=== PATIENT | male | born 1955 | race Caucasian/White ===

== ENCOUNTER 2024-07-07 22:18 | Inpatient (IN) | payer MEDICARE ==
[~2024-07-07] VITALS: Ht 175.3 cm; Wt 79.4 kg
[2024-07-07 22:18] VITALS: TEMP 98.3
[2024-07-07] MEDS ORDERED: SODIUM CHLORIDE FLUSH 10 ML SYR IV PRN (22:30)
[2024-07-07 22:59] LABS: BASOPHILS % 0.6 % (0.0-1.0); EOSINOPHILS # (AUTO) 0.1 (0.0-0.4); EOSINOPHILS % 1.8 % (0.0-6.0); HEMATOCRIT 44.5 % (38.2-49.6); HEMOGLOBIN 14.9 g/dL (14.0-18.0); LYMPHOCYTES # (AUTO) 2.4 (1.0-3.2); LYMPHOCYTES % 36.6 % (18.0-39.1); MEAN CORPUSCULAR HGB CONC 33.5 g/dL (31-35); MEAN CORPUSCULAR VOLUME 95.7 fL (81-99); MONOCYTES # (AUTO) 0.8 (0.2-0.8); MONOCYTES % 11.7 % (4.4-11.3); NEUTROPHILS # (AUTO) 3.2 (2.1-6.9); NEUTROPHILS % 49.1 % (38.7-80.0); PLATELET COUNT 228 x10e3/uL (140-360); RED BLOOD COUNT 4.65 x10e6/uL (4.3-5.7); RED CELL DISTRIBUTION WIDTH 12.7 % (11.7-14.4)
[2024-07-07 23:26] LABS: ALBUMIN/GLOBULIN RATIO 1.4 (0.8-2.0); BILIRUBIN,TOTAL 0.4 mg/dL (0.2-1.2); CREATININE, SERUM 1.03 mg/dL (0.72-1.25); TOTAL PROTEIN 6.9 g/dL (6.5-8.1)
[2024-07-07 23:32] LABS: TROPONIN I 0.002 ng/mL (0-0.300)
[2024-07-07 23:52] LABS: AMPHETAMINES SCREEN,URINE NEGATIVE (NEGATIVE); BENZODIAZEPINES SCREEN,URINE NEGATIVE (NEGATIVE); CANNABINOIDS SCREEN,URINE NEGATIVE (NEGATIVE); CLARITY,URINE CLEAR (CLEAR); COCAINE SCREEN,URINE NEGATIVE (NEGATIVE); COLOR,URINE COLORLESS (YELLOW); GLUCOSE, URINE 1+ (NEGATIVE); KETONES,URINE NEGATIVE (NEGATIVE); LEUKOCYTE ESTERASE ,URINE NEGATIVE (NEGATIVE); METHADONE SCREEN, URINE NEGATIVE (NEGATIVE); NITRITE,URINE NEGATIVE (NEGATIVE); OPIATES SCREEN,URINE NEGATIVE (NEGATIVE); PH,URINE 5.5 (5 - 7); PHENCYCLIDINE SCREEN,URINE NEGATIVE (NEGATIVE); PROTEIN,URINE DIPSTICK NEGATIVE (NEGATIVE)
[2024-07-07 23:53] LABS: BILIRUBIN,URINE NEGATIVE (NEGATIVE); URINE UROBILINOGEN 0.2 mg/dL (0.2 - 1)
[2024-07-08] VITALS (42 sets, daily range): BP systolic 88–154; BP diastolic 52–90; PULSE 36–65; RESP 11–27; TEMP 98.9–99.1; O2SAT 91–100
[2024-07-08] MEDS: DEXMEDETOMIDINE 400MCG/NS100ML 100 ML IV PRN (00:08)
[2024-07-08] MEDS: ASPIRIN 81 MG CHEW TAB PO ONE (00:09)
[2024-07-08] MEDS: ONDANSETRON HCL INJ 2MG/ML 2ML 2 MG/ML VIAL IV STA (00:10)
[2024-07-08] MEDS ORDERED: MIDAZOLAM HCL 50 MG in SODIUM CHLORIDE 0.9% 90 ML IV PRN (00:15)
[2024-07-08 00:21] LABS: BACTERIA,URINE FEW /HPF; EPITHELIAL CELLS,URINE FEW /LPF; RBC,URINE 0-5 /HPF (0-5); WBC,URINE (MAN) 0-5 /HPF (0-5)
[2024-07-08 00:45] LABS: ABG HCO3 22 mmol/L (22-26); ABG PCO2 45 mmHg (35-45); ABG PO2 92 mmHg (80-105); ABG TCO2 23
[2024-07-08] MEDS: SODIUM CHLORIDE 0.9% 1000ML 1,000 ML IV ONE (01:35)
[2024-07-08] MEDS: DEXMEDETOMIDINE 400MCG/NS100ML 100 ML IV ONE (01:57)
[2024-07-08 02:08] LABS: ABG HCO3 21 mmol/L (22-26); ABG PCO2 45 mmHg (35-45); ABG PH 7.27 (7.35-7.45); ABG PO2 94 mmHg (80-105); ABG TCO2 22
[2024-07-08] MEDS: SODIUM CHLORIDE 0.9% 1000ML 1,000 ML IV SCH ×2 (02:14→04:45)
[2024-07-08] MEDS ORDERED: IOPAMIDOL 370 MG/ML 100 ML INFUS..BTL INJ ONE (02:20)
[2024-07-08] MEDS: FENTANYL CITRATE INJ 2,000 MCG in SODIUM CHLORIDE 0.9% 250ML 210 ML IV PRN (03:07)
[2024-07-08] MEDS ORDERED: ATROPINE SULFATE 0.1 MG/ML 10ML SYR ONE (03:45)
[2024-07-08] MEDS: ATROPINE SULFATE 1 MG/ML VIAL IV ONE (03:56)
[2024-07-08] MEDS ORDERED: EPINEPHRINE HCL 1:1000 1ML 4 MG in DEXTROSE 5% 250ML 250 ML IV SCH (04:00)
[2024-07-08] MEDS ORDERED: ONDANSETRON HCL INJ 2MG/ML 2ML 2 MG/ML VIAL IV PRN (04:45)
[2024-07-08] MEDS: MULTIVITAMINS- 12 INJECTION 10 ML, FOLIC ACID MDV 1 MG, THIAMINE HCL INJ 100 MG in SODI... IV ONE (05:13)
[2024-07-08] MEDS ORDERED: DEXTROSE 50% SYRINGE 50 ML IV PRN ×2 (08:30→14:00)
[2024-07-08] MEDS: LACTATED RINGER'S 1,000 ML INJ ONE (09:34)
[2024-07-08 10:06] LABS: ABG HCO3 22 mmol/L (22-26); ABG PCO2 42 mmHg (35-45); ABG PH 7.32 (7.35-7.45); ABG PO2 111 mmHg (80-105); ABG TCO2 23
[2024-07-08] MEDS: INSULIN REGULAR, HUMAN 100 UNIT/1 ML SQ SCH (11:30)
[2024-07-08] MEDS: TRAMADOL HCL 50 MG TAB PO PRN (11:51)
[2024-07-08] MEDS ORDERED: LIPITOR20 MG PO (12:18)
[2024-07-08] MEDS ORDERED: FUROSEMIDE40 MG PO (12:20)
[2024-07-08] MEDS ORDERED: COREG6.25 MG PO (12:21)
[2024-07-08] MEDS ORDERED: JARDIANCE25 MG (12:22)
[2024-07-08] MEDS ORDERED: DOCUSATE SODIUM 100 MG CAP PO PRN (14:00)
[2024-07-08] MEDS ORDERED: SIMETHICONE 80 MG CHEW PO PRN (14:00)
[2024-07-08] MEDS ORDERED: ALBUTEROL/IPRATROPIUM 3 ML NEB NEB PRN (14:00)
[2024-07-08] MEDS ORDERED: ACETAMINOPHEN 325 MG TAB PO PRN (14:00)
[2024-07-08] MEDS ORDERED: LIDOCAINE 4% PATCH TP PRN (14:00)
[2024-07-08] MEDS ORDERED: POTASSIUM CHLORIDE 20 MEQ TAB CR PO PRN (14:00)
[2024-07-08] MEDS ORDERED: HYDRALAZINE HCL 20 MG/ML VIAL IV PRN (14:00)
[2024-07-08] MEDS ORDERED: BENZONATATE 100 MG CAP PO PRN (14:00)
[2024-07-08] MEDS ORDERED: DIPHENHYDRAMINE HCL 25 MG CAP PO PRN (14:00)
[2024-07-08] MEDS: ENOXAPARIN SOD INJ 40 MG/0.4 ML SYR SC SCH (16:32)
[2024-07-08] MEDS: MUPIROCIN 2% OINT 22 GM TUBE TOP SCH (16:32)
[2024-07-08] MEDS: KETOROLAC TROMETHAMINE 30 MG/ML VIAL IV SCH (16:32)
[2024-07-08] MEDS ORDERED: MELATONIN 5 MG TABLET PO PRN (21:00)
[2024-07-09] VITALS (11 sets, daily range): BP systolic 127–169; BP diastolic 51–81; PULSE 42–52; RESP 13–20; TEMP 98.5–98.6; O2SAT 94–100
[2024-07-09 06:20] LABS: BASOPHILS # (AUTO) 0.1 (0.0-0.1); BASOPHILS % 0.8 % (0.0-1.0); EOSINOPHILS # (AUTO) 0.1 (0.0-0.4); EOSINOPHILS % 1.5 % (0.0-6.0); HEMATOCRIT 40.1 % (38.2-49.6); HEMOGLOBIN 13.1 g/dL (14.0-18.0); LYMPHOCYTES # (AUTO) 1.7 (1.0-3.2); LYMPHOCYTES % 28.3 % (18.0-39.1); MEAN CORPUSCULAR HEMOGLOBIN 31.9 pg (28-32); MEAN CORPUSCULAR HGB CONC 32.7 g/dL (31-35); MEAN CORPUSCULAR VOLUME 97.6 fL (81-99); MONOCYTES # (AUTO) 0.7 (0.2-0.8); MONOCYTES % 11.7 % (4.4-11.3); NEUTROPHILS # (AUTO) 3.5 (2.1-6.9); NEUTROPHILS % 57.4 % (38.7-80.0); PLATELET COUNT 166 x10e3/uL (140-360); RED BLOOD COUNT 4.11 x10e6/uL (4.3-5.7); RED CELL DISTRIBUTION WIDTH 12.5 % (11.7-14.4); WHITE BLOOD COUNT 6.07 x10e3/uL (4.8-10.8)
[2024-07-09 06:49] LABS: ALBUMIN 3.1 g/dL (3.5-5.0); ALBUMIN/GLOBULIN RATIO 1.4 (0.8-2.0); ANION GAP 8.6 mmol/L (8-16); BILIRUBIN,TOTAL 1.4 mg/dL (0.2-1.2); CALCIUM 8.1 mg/dL (8.4-10.2); CREATININE, SERUM 0.8 mg/dL (0.72-1.25); POTASSIUM 3.6 mmol/L (3.5-5.1); TOTAL PROTEIN 5.3 g/dL (6.5-8.1)
[2024-07-09] MEDS: PANTOPRAZOLE SOD 40 MG TABEC PO SCH (10:03)
[2024-07-18 05:50] LABS: ABG HCO3 21 mmol/L (22-26); ABG PCO2 45 mmHg (35-45); ABG PH 7.27 (7.35-7.45); ABG PO2 94 mmHg (80-105); ABG TCO2 22
[2024-07-18 05:50] LABS: ABG HCO3 22 mmol/L (22-26); ABG PCO2 45 mmHg (35-45); ABG PO2 92 mmHg (80-105); ABG TCO2 23
[2024-07-18 05:50] LABS: ABG HCO3 22 mmol/L (22-26); ABG PCO2 42 mmHg (35-45); ABG PH 7.32 (7.35-7.45); ABG PO2 111 mmHg (80-105); ABG TCO2 23
== END 2024-07-09 11:00 | disposition left against medical advice (07) | DRG 894 ==
LOC: ER 22:22 → ERHOLD 07-08 04:42 → ICU 07-08 06:44
PROVIDERS: ADMIT Internal Medicine; ATTEND Internal Medicine
PROC: 0BH17EZ Insertion of Endotracheal Airway into Trachea, Via Natural or Artificial Opening (ICD-10-PCS; principal; 2024-07-08)
PROC: 5A1935Z Respiratory Ventilation, Less than 24 Consecutive Hours (ICD-10-PCS; 2024-07-08)
PROC: 4A033R1 Measurement of Arterial Saturation, Peripheral, Percutaneous Approach (ICD-10-PCS; 2024-07-08)
PROC: 4A033R1 Measurement of Arterial Saturation, Peripheral, Percutaneous Approach (ICD-10-PCS; 2024-07-08)
PROC: 4A033R1 Measurement of Arterial Saturation, Peripheral, Percutaneous Approach (ICD-10-PCS; 2024-07-08)
PROC: 4A033R1 Measurement of Arterial Saturation, Peripheral, Percutaneous Approach (ICD-10-PCS; 2024-07-08)
PROC: 4A033R1 Measurement of Arterial Saturation, Peripheral, Percutaneous Approach (ICD-10-PCS; 2024-07-08)
PROC: 4A033R1 Measurement of Arterial Saturation, Peripheral, Percutaneous Approach (ICD-10-PCS; 2024-07-08)
DX: F10.120 Alcohol abuse with intoxication, uncomplicated (principal); G92.8 Other toxic encephalopathy; I48.92 Unspecified atrial flutter; I25.10 Atherosclerotic heart disease of native coronary artery without angina pectoris; Z95.1 Presence of aortocoronary bypass graft; R07.89 Other chest pain; Y90.7 Blood alcohol level of 200-239 mg/100 ml; I95.9 Hypotension, unspecified; Z53.29 Procedure and treatment not carried out because of patient's decision for other reasons; K21.9 Gastro-esophageal reflux disease without esophagitis; E11.51 Type 2 diabetes mellitus with diabetic peripheral angiopathy without gangrene; Z79.84 Long term (current) use of oral hypoglycemic drugs; I44.0 Atrioventricular block, first degree; I44.7 Left bundle-branch block, unspecified; E78.5 Hyperlipidemia, unspecified; F17.210 Nicotine dependence, cigarettes, uncomplicated; Z71.6 Tobacco abuse counseling; Z79.899 Other long term (current) drug therapy
CPT/HCPCS: 36415; 36600; 51700; 70450; 71045; 71275; 74174; 80053; 80307; 80320; 81001; 82805; 82948; 83880; 84484; 85025; 85379; 93005; 93306; 94003; 94760; 94799; 99285; J1650; J1885; J2405; J2470; J3411; J7030; J7050; Q9967